=== PATIENT | female | born 1995 | race American Indian/Alaskan Native ===

== ENCOUNTER 2020-11-10 15:06 | Observation (INO) | payer SELFPAY ==
[2020-11-10] MEDS ORDERED: TETANUS,DIPH,PERTUSS(ACELL) VACCINE 0.5 ML SYRINGE IM ONE ×2 (15:18→18:41)
[2020-11-10] MEDS ORDERED: IBUPROFEN 600 MG TAB PO ONE (15:18)
--- NOTE | 2020-11-10 15:26 | Emergency Department Report ---
- General Chief complaint: Skin/Abscess/Foreign Body Stated complaint: SEWING NEEDLE BROKE OFF IN FLT FOOT Time Seen by Provider: 11/10/20 15:17 Source: patient Mode of arrival: Ambulatory Limitations: No Limitations - History of Present Illness Initial comments: Patient is a 25-year-old female presents emergency room with points of a possible foreign body to the left foot that occurred just prior to arrival. Patient states that she stepped on a sewing needle and that it broke in half and believes that the other pieces still left inside of her foot. She is ambulatory. She is unsure of her last tetanus immunization. She denies any numbness or weakness. No past medical history. No allergies to medications. - Related Data Allergies Allergy/AdvReac Type Severity Reaction Status Date / Time No Known Allergies Allergy Unverified 11/10/20 15:08 Abscess Boil HPI - HPI Chief Complaint: Skin/Abscess/Foreign Body Stated Complaint: SEWING NEEDLE BROKE OFF IN FLT FOOT Time Seen by Provider: 11/10/20 15:17 Allergies/Adverse Reactions: Allergies Allergy/AdvReac Type Severity Reaction Status Date / Time No Known Allergies Allergy Unverified 11/10/20 15:08 ED Review of Systems ROS: Stated complaint: SEWING NEEDLE BROKE OFF IN FLT FOOT Other details as noted in HPI Comment: All other systems reviewed and negative ED Past Medical Hx - Past Medical History Previous Medical History?: No - Surgical History Past Surgical History?: No - Social History Smoking Status: Never Smoker Substance Use Type: None ED Physical Exam - General Limitations: No Limitations General appearance: alert, in no apparent distress - Head Head exam: Present: atraumatic, normocephalic - Eye Eye exam: Present: normal appearance - ENT ENT exam: Present: mucous membranes moist - Neurological Exam Neurological exam: Present: alert, oriented X3 - Psychiatric Psychiatric exam: Present: normal affect, normal mood - Skin Skin exam: Present: warm, dry, other (there is a very small 2 mm puncture wound present to the left plantar foot, unable to visually see foreign body, FROM of the LLE, no bleeding, neurovascularly intact) ED Course Vital Signs 11/10/20 15:10 Temperature 98.2 F Pulse Rate 76 Respiratory 16 Rate Blood Pressure 132/76 O2 Sat by Pulse 100 Oximetry - Consultations Consultation #1: 11/10/20 17:[address] Jennings, general surgeon regarding patient presentation and results, she advised to keep patient n.p.o. at midnight and she will see patient in the morning 11/10/20 17:[address] Carey, hospitalist who will accept and resume care of patient, will admit to hospital service - Procedure Description Procedures done: Foreign body removal from left plantar foot. Verbal consent obtained by patient. Skin prepped with Betadine, sterile drapes applied, 3 cc of 1% lidocaine without epinephrine used anesthetic, 11 blade used to make a 1 cm incision, used forceps and hemostats to attempt to identify foreign body, unable to find foreign body. Dr. Novoa, ER attending also attempted to find foreign body and was unsuccessful ED Medical Decision Making - Radiology Data Radiology results: report reviewed Ordering Physician: ANTONELLA PASCUAL Date of Service: 11/10/20 Procedure(s): XR foot 3+V LT Accession Number(s): [id number] cc: ANTONELLA PASCUAL Fluoro Time In Minutes: LEFT FOOT 3 VIEWS INDICATION / CLINICAL INFORMATION: possible sewing needle in left plantar foot COMPARISON: None available. FINDINGS: BONES and JOINT(S): No acute fracture or subluxation. No significant arthritis. SOFT TISSUES: A needle is seen along the plantar aspect of the forefoot spanning the second MTP joint and measuring up to 2.9 cm. No other significant abnormality. ADDITIONAL FINDINGS: None. IMPRESSION: Needle in left foot as above without other acute findings. Signer Name: Avelino Carter MD Signed: 11/10/2020 3:47 PM Workstation Name: [id number] Transcribed By: SHARON Dictated By: Avelino Carter MD Electronically Authenticated By: Avelino Carter MD Signed Date/Time: 11/10/20 1547 DD/ 1546 TD/TT: - Medical Decision Making Patient is a 25-year-old female presents emergency room with points of a possible foreign body to the left foot that occurred just prior to arrival. Patient states that she stepped on a sewing needle and that it broke in half and believes that the other pieces still left inside of her foot. She is ambulatory. She is unsure of her last tetanus immunization. She denies any numbness or weakness. No past medical history. No allergies to medications. Vitals are stable. On exam:there is a very small 2 mm puncture wound present to the left plantar foot, unable to visually see foreign body, FROM of the LLE, no bleeding, neurovascularly intact. X-ray left foot:No acute fracture or subluxation. No significant arthritis. SOFT TISSUES: A needle is seen along the plantar aspect of the forefoot spanning the second MTP joint and measuring up to 2.9 cm. No other significant abnormality. Foreign body removal attempted by myself and Dr. Novoa, ER attending and was unsuccessful at removal.Spoke to Dr. Jennings, general surgeon regarding patient presentation and results, she advised to keep patient n.p.o. at midnight and she will see patient in the morning. Spoke to Dr. Carey, hospitalist who will accept and resume care of patient, will admit to hospital service. Patient agreeable with admission. Critical care attestation.: If time is entered above; I have spent that time in minutes in the direct care of this critically ill patient, excluding procedure time. ED Disposition Clinical Impression: Foreign body in left foot Qualifiers: Encounter type: initial encounter Qualified Code(s): S90.852A - Superficial foreign body, left foot, initial encounter Disposition: 02 [facility]ORT TERM [facility] Is pt being admited?: Yes Does the pt Need Aspirin: No Condition: Stable Time of Disposition: 17:42
[2020-11-10] MEDS ORDERED: LIDOCAINE (1%) 10 MG/1 ML VIAL 20 ML MDV INFILTRATI ONE (15:40)
--- NOTE | 2020-11-10 15:51 | XRay Report ---
LEFT FOOT 3 VIEWS INDICATION / CLINICAL INFORMATION: possible sewing needle in left plantar foot COMPARISON: None available. FINDINGS: BONES and JOINT(S): No acute fracture or subluxation. No significant arthritis. SOFT TISSUES: A needle is seen along the plantar aspect of the forefoot spanning the second MTP joint and measuring up to 2.9 cm. No other significant abnormality. ADDITIONAL FINDINGS: None. IMPRESSION: Needle in left foot as above without other acute findings. Signer Name: Avelino Carter MD Signed: 11/10/2020 3:47 PM Workstation Name: [id number]
--- NOTE | 2020-11-10 17:42 | History and Physical Report ---
History of Present Illness Chief complaint: I have a needle in My foot History of present illness: 25 YO Female with No PMH presents to ED for evaluation. Patient reports "I have a needle in my foot". Patient states that she stepped on a sewing needle today and that shortly after stepping on a needle the needle broke while in her foot. Patient transported to [facility] via private vehicle for further care and evaluation of the aforementioned symptoms. Patient was seen and evaluated in the emergency department. All lab and imaging studies reviewed. X-ray of the foot revealed foreign body in left foot. Surgical team consulted. Patient pending surgical intervention. Patient placed in observation status admitted to medical floor. Patient denies fever, chills, chest pain, palpitation, productive cough, skin rash, recent ill contacts, known exposure to COVID-19. No prior admission for review. No medication listed at time of admission for reconciliation. Past History Past Medical History: No medical history, other (Reviewed) Past Surgical History: No surgical history, Other (Reviewed) Social history: single. denies: smoking, alcohol abuse, prescription drug abuse Family history: hypertension Medications and Allergies Allergies Allergy/AdvReac Type Severity Reaction Status Date / Time No Known Allergies Allergy Unverified 11/10/20 15:08 Review of Systems Constitutional: no weight loss, no weight gain Ears, nose, mouth and throat: no ear pain, no ear discharge, no decreased h earing, no nasal congestion, no nasal discharge Breasts: no change in shape, no swelling Cardiovascular: no orthopnea, no palpitations, no edema, no syncope, no lightheadedness Respiratory: no cough, no cough with sputum, no hemoptysis, no dyspnea on exertion Gastrointestinal: no nausea, no diarrhea, no constipation, no hematemesis Genitourinary Female: no pelvic pain, no flank pain, no dysuria, no urinary frequency, no urgency Rectal: no pain, no incontinence, no bleeding Musculoskeletal: no neck stiffness, no neck pain, no leg numbness/tingling Integumentary: no rash, no pruritis, no sores Neurological: no transient paralysis, no parathesias, no numbness, no seizures Psychiatric: no anxiety, no change in sleep habits, no insomnia, no hypersomnia Endocrine: no cold intolerance, no polydipsia, no flushing Hematologic/Lymphatic: no easy bruising Allergic/Immunologic: no urticaria, no allergic rhinitis, no wheezing Exam - Constitutional Vitals: Temp Pulse Resp BP Pulse Ox 98.2 F 76 16 132/76 100 11/10/20 15:10 11/10/20 15:10 11/10/20 15:10 11/10/20 15:10 11/10/20 15:10 General appearance: Present: no acute distress, well-nourished - EENT Eyes: Present: PERRL ENT: hearing intact, clear oral mucosa - Neck Neck: Present: supple, normal ROM - Respiratory Respiratory effort: normal Respiratory: bilateral: CTA - Cardiovascular Heart Sounds: Present: S1 & S2. Absent: rub, click - Extremities Extremities: pulses symmetrical, No edema Peripheral Pulses: within normal limits - Abdominal General gastrointestinal: Present: soft, non-tender, non-distended, normal bowel sounds Female genitourinary: Present: normal - Integumentary Integumentary: Present: clear, warm, dry - Musculoskeletal Musculoskeletal: gait normal, strength equal bilaterally - Psychiatric Psychiatric: appropriate mood/affect, intact judgment & insight - Neurologic Neurologic: CNII-XII intact, moves all extremities Assessment and Plan - Patient Problems (1) Foreign body in left foot Current Visit: Yes Status: Acute Qualifiers: Encounter type: initial encounter Qualified Code(s): S90.852A - Superficial foreign body, left foot, initial encounter Plan to address problem: Surgical team consulted. Patient pending surgical intervention as per surgical team. Pain control, supportive care. (2) DVT prophylaxis Current Visit: Yes Status: Acute Plan to address problem: SCD bilateral extremities while in bed, patient is ambulatory.
[2020-11-10] MEDS ORDERED: HYDROmorphone 1 MG/1 ML INJ IV PRN (17:44)
[2020-11-10] MEDS ORDERED: oxyCODONE /ACETAMINOPHEN 5-325MG TAB PO PRN (17:44)
[2020-11-10] MEDS ORDERED: ACETAMINOPHEN 325 MG TAB PO PRN (17:44)
[2020-11-10] MEDS ORDERED: ONDANSETRON 4 MG/2 ML INJ IV PRN (17:44)
[2020-11-10] MEDS ORDERED: SODIUM CHLORIDE 0.9% 1000 ML 1,000 ML IV SCH (17:45)
[2020-11-11 05:01] LABS: Mean Corpuscular HGB Conc 27 % (30-34); Platelet Count 927 K/mm3 (140-440)
[2020-11-11 05:03] LABS: Hematocrit 22.8 % (30.3-42.9); Hemoglobin 6.1 gm/dl (10.1-14.3); Mean Corpuscular Volume 60 fl (79-97); Red Cell Distribution Width 34.5 % (13.2-15.2)
[2020-11-11 06:53] LABS: Total Cells Counted 100
[2020-11-11 06:58] LABS: Anisocytosis 3+; Hypochromasia 3+; Ovalocytes 1+; Poikilocytosis 2+; Spherocytes 1+; Target Cells 1+; Tear Drop Cells 1+
[2020-11-11 06:59] LABS: Platelet Estimate Consistent w Auto
[2020-11-11 07:28] LABS: INR 0.98 (0.87-1.13)
[2020-11-11 07:32] LABS: Hematocrit 24.6 % (30.3-42.9); Hemoglobin 6.5 gm/dl (10.1-14.3)
[2020-11-11 07:37] LABS: Blood Urea Nitrogen 12 mg/dL (7-17); Hemolysis Index 9
[2020-11-11 07:43] LABS: BUN/Creatinine Ratio 17
[2020-11-11] MEDS ORDERED: ePHEDrine SULFATE 50 MG/1 ML INJ ONE (09:00)
--- NOTE | 2020-11-11 09:16 | Consultation ---
History of Present Illness Consult date: 11/11/20 - History of present illness History of present illness: 25-year-old female presents the emergency room yesterday after stepping on a sewing needle same day. It had broken with approximately 2 cm or so in her foot under the skin. General surgery consultation was called after to emergency room providers were unable to remove it. Upon examination today patient says that her foot is very tender. She denies any other complaints regarding her foot. Patient had x-ray done of her left foot that showed a 2.3 cm needle into the skin and soft tissue under the surface. Of unrelated note patient says that she has been feeling faint and dizzy over the last few weeks to months and was scheduled to get blood work with her primary provider next week. Past History Past Medical History: No medical history, other (Reviewed) Past Surgical History: No surgical history, Other (Reviewed) Social history: single. denies: smoking, alcohol abuse, prescription drug abuse Family history: hypertension Medications and Allergies Allergies Allergy/AdvReac Type Severity Reaction Status Date / Time No Known Allergies Allergy Unverified 11/10/20 15:08 Active Meds: Active Medications Acetaminophen (Acetaminophen 325 Mg Tab) 650 mg PO Q4H PRN PRN Reason: Pain MILD(1-3)/Fever >100.5/YOUNG Hydromorphone HCl (Hydromorphone 1 Mg/1 Ml Inj) 0.5 mg IV Q12H PRN PRN Reason: Pain , Severe (7-10) Last Admin: 11/11/20 05:25 Dose: 0.5 mg Documented by: Sodium Chloride (Nacl 0.9% 1000 Ml) 1,000 mls @ 75 mls/hr IV DIRECT ALPHONSO Last Admin: 11/11/20 05:29 Dose: 75 mls/hr Documented by: Ondansetron HCl (Ondansetron 4 Mg/2 Ml Inj) 4 mg IV Q8H PRN PRN Reason: Nausea And Vomiting Oxycodone/Acetaminophen (Oxycodone /Acetaminophen 5-325mg Tab) 1 tab PO Q12H PRN PRN Reason: Pain, Moderate (4-6) Review of Systems All systems: negative - Constitutional fatigue, weakness - Genitourinary Menstruation: period heavy, other (Irregular periods) - Muskuloskeletal left: foot pain Exam Vital Signs Temp Pulse Resp BP Pulse Ox 98.2 F 76 16 132/76 100 11/10/20 15:10 11/10/20 15:10 11/10/20 15:10 11/10/20 15:10 11/10/20 15:10 - General physical appearance Positive: well developed, well nourished, no distress, moderate pain - ENT Positive: normal pinna, normal nares - Respiratory Positive: normal expansion, normal respiratory effort - Cardiovascular Heart Sounds: Present: S1 & S2 - Extremities Extremities: no ischemia Extremity abnormal: other (Left foot with no significant swelling. There is a small superficial 1 cm incision on the dorsal aspect of her foot between the first and second metatarsal head with dried blood. Sole of foot is tender to palpation. Needle cannot be palpated.) Results - Labs 11/11/20 07:09 11/11/20 07:09 Abnormal lab results 11/11/20 11/11/20 11/11/20 Range/Units 04:22 07:09 07:09 Hgb 6.1 L 6.5 L (10.1-14.3) gm/dl Hct 22.8 L 24.6 L (30.3-42.9) % MCV 60 L (79-97) fl MCH 16 L (28-32) pg MCHC 27 L (30-34) % RDW 34.5 H (13.2-15.2) % Plt Count 927 H (140-440) K/mm3 Lymphocytes % (Manual) 7.0 L (13.4-35.0) % Lymphocytes # (Manual) 0.6 L (1.2-5.4) K/mm3 Potassium 3.5 L (3.6-5.0) mmol/L Chloride 110.7 H (98-107) mmol/L Calcium 8.0 L (8.4-10.2) mg/dL Diabetes panel 11/11/20 Range/Units 07:09 Sodium 140 (137-145) mmol/L Potassium 3.5 L (3.6-5.0) mmol/L Chloride 110.7 H (98-107) mmol/L Carbon Dioxide 22 (22-30) mmol/L BUN 12 (7-17) mg/dL Creatinine 0.7 (0.6-1.2) mg/dL Glucose 97 (65-100) mg/dL Calcium 8.0 L (8.4-10.2) mg/dL Calcium panel 11/11/20 Range/Units 07:09 Calcium 8.0 L (8.4-10.2) mg/dL Pituitary panel 11/11/20 Range/Units 07:09 Sodium 140 (137-145) mmol/L Potassium 3.5 L (3.6-5.0) mmol/L Chloride 110.7 H (98-107) mmol/L Carbon Dioxide 22 (22-30) mmol/L BUN 12 (7-17) mg/dL Creatinine 0.7 (0.6-1.2) mg/dL Glucose 97 (65-100) mg/dL Calcium 8.0 L (8.4-10.2) mg/dL Adrenal panel 11/11/20 Range/Units 07:09 Sodium 140 (137-145) mmol/L Potassium 3.5 L (3.6-5.0) mmol/L Chloride 110.7 H (98-107) mmol/L Carbon Dioxide 22 (22-30) mmol/L BUN 12 (7-17) mg/dL Creatinine 0.7 (0.6-1.2) mg/dL Glucose 97 (65-100) mg/dL Calcium 8.0 L (8.4-10.2) mg/dL - Imaging Additional studies: left foot x-ray - reviewed Assessment and Plan 25-year-old female with foreign body in left foot. Afebrile and stable. Patient consented to take 2 OR for removal of foreign body (needle). Anemia - Hb 6.5 likely chronic of unknown etiology at this time. Recommend patient get work-up to evaluate and treat.
--- NOTE | 2020-11-11 09:21 | Anesthesia Consultation ---
Anesthesia Consult and Med Hx Date of service: 11/11/20 - Airway Anesthetic Teeth Evaluation: Good ROM Head & Neck: Adequate Mental/Hyoid Distance: Adequate Mallampati Class: Class II Intubation Access Assessment: Probably Good - Pre-Operative Health Status ASA Pre-Surgery Classification: ASA1 Proposed Anesthetic Plan: MAC - Pulmonary Hx Smoking: No Hx Asthma: No Hx Respiratory Symptoms: No SOB: No COPD: No Home Oxygen Therapy: No Hx Pneumonia: No Hx Sleep Apnea: Yes - Cardiovascular System Hx Hypertension: No Hx Coronary Artery Disease: No Hx Heart Attack/AMI: No Hx Angina: No Hx Percutaneous Transluminal Coronary Angioplasty (PTCA): No Hx Cardia Arrhythmia: No Hx Pacemaker: No Hx Internal Defibrillator: No Hx Valvular Heart Disease: No Hx Heart Murmur: No Hx Peripheral Vascular Disease: No - Central Nervous System Hx Neuromuscular Disorder: No Hx Seizures: No CVA: No Hx Back Pain: No Hx Psychiatric Problems: No - Gastrointestinal Hx Ulcer: No Hx Gastroesophageal Reflux Disease: No - Endocrine Hx Renal Disease: No Hx End Stage Renal Disease: No Hx Cirrhosis: No Hx Liver Disease: No Hx Insulin Dependent Diabetes: No Hx Non-Insulin Dependent Diabetes: No Hx Thyroid Disease: No Hx Hypothyroidism: No Hx Hyperthyroidism: No - Hematic Hx Anemia: Yes Hx Sickle Cell Disease: No - Other Systems Hx Alcohol Use: Yes (occ.) Hx Substance Use: No Hx Cancer: No Hx Obesity: No
--- NOTE | 2020-11-11 09:22 | Anesthesia Day of Surgery ---
Anesthesia Day of Surgery - Day of Surgery Patient Examined: Yes Patient H&P Reviewed: Yes Patient is NPO: Yes
[2020-11-11 09:48] LABS: HCG Qualitative,Urine Negative (Negative)
[2020-11-11] MEDS ORDERED: LIDOCAINE 2%/EPINEPHRINE 1:200,000 VIAL (20 ML) INFILTRATI ONE (09:56)
[2020-11-11] MEDS ORDERED: BUPIVACAINE/PF (0.25%) 2.5 MG/ML 30 ML VIAL INFILTRATI ONE ×2 (09:56→10:54)
[2020-11-11] MEDS ORDERED: LIDOCAINE MPF (2%) 20 MG/1 ML VIAL 5 ML ONE (10:29)
[2020-11-11] MEDS ORDERED: propofoL 200 MG/20 ML VIAL IV ONE ×2 (10:29→10:52)
[2020-11-11] MEDS ORDERED: fentaNYL 100 MCG/2 ML INJ ONE (10:29)
[2020-11-11] MEDS ORDERED: MIDAZOLAM 2 MG/2 ML INJ ONE (10:29)
[2020-11-11] MEDS ORDERED: ceFAZolin 1 GM VIAL ONE ×2 (10:41)
[2020-11-11] MEDS ORDERED: SODIUM CHLORIDE 0.9% IRR 1,500 ML BOTTLE IR ONE (10:54)
[2020-11-11] MEDS ORDERED: LIDOCAINE 2%/EPINEPHRINE 1:100,000 VIAL (20 ML) INFILTRATI ONE (10:54)
--- NOTE | 2020-11-11 11:39 | Operative Report ---
Operative Report Operative Report: Date: November 11, 2020 Surgeon: Sita Jennings MD Preop diagnosis: Foreign body left foot Postop diagnosis: Same as preop Procedure: Removal of foreign body left foot Anesthesia: MAC with local Indication: Patient is a 25-year-old female who presented to the emergency room yesterday after stepping on a sewing needle. Needle was unable to be retrieved in the emergency room patient was consented for removal of foreign body from her left foot in the operating room. Details of procedure: Patient was brought into the OR suite and laid in supine position. MAC anesthesia was induced. Left foot was elevated and prepped and draped in sterile fashion. After a timeout was performed 50-50 lidocaine Marcaine mixture was used to anesthetize the area under the second metatarsal head of her foot. Fluoroscopy was available in the room and showed a precut image showing the location of the needle. The scalpel was used to cut down to the area. Dissection down with a hemostat was used to localize the surface cut end of the needle. It was then removed with forceps. Intact. A post removal fluoroscopy image was taken which showed verification of complete removal of the foreign body. There was minimal bleeding, however any bleeding was easily controlled with electrocautery. Interrupted 2-0 nylon sutures were used to approximate the 2 cm skin incision. Patient was then dressed in a sterile dressing will get up and taken to recovery in stable condition. Complications: None immediate Specimen: Foreign body EBL: Minimal
--- NOTE | 2020-11-11 11:53 | Post Anesthesia Evaluation ---
- Post Anesthesia Evaluation Patient Participated: Yes Airway Patent: Yes Stable Respiratory Function: Yes Nausea/Vomiting: No Temp > 96.8F: Yes Pain Manageable: Yes Adequeate Hydration: Yes Anesthesia Complications: No Block Receding Appropriately: Not Applicable Patient on Ventilator: No Other Comments: pt a+o x3. no distress noted. denies pain. resting comfortable in bed. awaiting transfer.
[2020-11-11] MEDS ORDERED: HYDROmorphone 1 MG/1 ML INJ IV PRN (11:54)
[2020-11-11] MEDS ORDERED: ONDANSETRON 4 MG/2 ML INJ IV PRN (11:54)
[2020-11-11] MEDS ORDERED: SODIUM CHLORIDE 0.9% 500 ML 500 ML IV ONE (12:00)
--- NOTE | 2020-11-11 12:08 | XRay Report ---
INTRAOPERATIVE FLUOROSCOPY: LEFT FOOT INDICATION / CLINICAL INFORMATION: SURGICAL REMOVAL OF FOREIGN BODY OF LT FOOT. TECHNIQUE: Intraoperative spot images were obtained during the procedure. FINDINGS: Fluoroscopic images of the left foot were obtained. Radiopaque needle has been removed. Fluoroscopy Time: 0.2 minute. Fluoroscopy Images: 2. Signer Name: Duke Wang MD Signed: 11/11/2020 12:03 PM Workstation Name: [id number]
--- NOTE | 2020-11-11 12:28 | Progress Note ---
Assessment and Plan (1) Foreign body in left foot Current Visit: Yes Status: Acute Qualifiers: Encounter type: initial encounter Qualified Code(s): S90.852A - Superficial foreign body, left foot, initial encounter Plan to address problem: Surgical team consulted. Patient s/p surgical intervention as per surgical team. Pain control, supportive care. --Microcytic anemia, ordered for transfusion (2) DVT prophylaxis Current Visit: Yes Status: Acute Plan to address problem: SCD bilateral extremities while in bed, patient is ambulatory. Disposition: Status post removal of foreign body today in the OR. Hemoglobin 6.8, will transfuse 1 unit of packed RBC. Patient currently in postop area. Will follow H&H. If H&H is stable patient will be discharged home tomorrow in the morning. Subjective Date of service: 11/11/20 Objective - Constitutional Vitals: Vital Signs - 12hr 11/11/20 11/11/20 11/11/20 05:00 05:15 05:31 Temperature Pulse Rate 75 63 70 Respiratory 15 16 14 Rate Blood Pressure 97/51 107/63 O2 Sat by Pulse 100 100 Oximetry 11/11/20 11/11/20 11/11/20 05:45 06:01 06:15 Temperature Pulse Rate 70 65 63 Respiratory 18 19 15 Rate Blood Pressure 109/63 115/66 103/59 O2 Sat by Pulse 100 100 100 Oximetry 11/11/20 11/11/20 11/11/20 06:31 06:45 07:01 Temperature Pulse Rate 69 85 69 Respiratory 18 16 11 L Rate Blood Pressure 109/61 107/62 120/69 O2 Sat by Pulse 100 100 100 Oximetry 11/11/20 11/11/20 11/11/20 07:15 07:31 07:45 Temperature Pulse Rate 67 70 77 Respiratory 23 19 19 Rate Blood Pressure 111/62 123/66 119/60 O2 Sat by Pulse 100 100 100 Oximetry 11/11/20 11/11/20 11/11/20 08:01 08:15 08:31 Temperature Pulse Rate 62 58 L 62 Respiratory 20 18 20 Rate Blood Pressure 114/67 117/65 115/66 O2 Sat by Pulse 100 100 100 Oximetry 11/11/20 11/11/20 11/11/20 08:45 09:04 11:23 Temperature 97.9 F 97.1 F L Pulse Rate 73 88 Respiratory 12 14 Rate Blood Pressure 133/89 124/65 O2 Sat by Pulse 100 100 Oximetry 11/11/20 11:28 Temperature Pulse Rate 89 Respiratory 15 Rate Blood Pressure 115/67 O2 Sat by Pulse 100 Oximetry - Labs CBC & Chem 7: 11/11/20 07:09 11/11/20 07:09 Labs: Abnormal lab results 11/11/20 11/11/20 11/11/20 Range/Units 04:22 07:09 07:09 Hgb 6.1 L 6.5 L (10.1-14.3) gm/dl Hct 22.8 L 24.6 L (30.3-42.9) % MCV 60 L (79-97) fl MCH 16 L (28-32) pg MCHC 27 L (30-34) % RDW 34.5 H (13.2-15.2) % Plt Count 927 H (140-440) K/mm3 Lymphocytes % (Manual) 7.0 L (13.4-35.0) % Lymphocytes # (Manual) 0.6 L (1.2-5.4) K/mm3 Potassium 3.5 L (3.6-5.0) mmol/L Chloride 110.7 H (98-107) mmol/L Calcium 8.0 L (8.4-10.2) mg/dL
[2020-11-11] MEDS ORDERED: oxyCODONE /ACETAMINOPHEN 5-325MG TAB PO PRN (12:39)
[2020-11-11 12:44] LABS: Iron 7 ug/dL (37-170); Total Iron Binding Capacity 337 mcg/dL (250-450)
[2020-11-11] MEDS: KETOROLAC 30 MG/1 ML INJ IV SCH ×3 (14:28→23:33)
[2020-11-12] MEDS: KETOROLAC 30 MG/1 ML INJ IV SCH ×2 (05:21→12:43)
--- NOTE | 2020-11-12 10:02 | Discharge Summary ---
Providers - Providers Date of Admission: 11/10/20 17:44 Date of discharge: 11/12/20 Attending physician: INDIO RUANO 11/10/20 17:39 Consult to Physician [CONS] Stat Comment: Consulting Provider: ANTONINO GRIFFITH Physician Instructions: Reason For Exam: foreign body in foot Primary care physician: [employer]ST[employer] MANAGER Hospitalization Condition: Stable Disposition: 01 HOME / SELF CARE / HOMELESS Time spent for discharge: 34 minutes Core Measure Documentation - Palliative Care Palliative Care/ Comfort Measures: Not Applicable - Core Measures Any of the following diagnoses?: none Exam - Physical Exam Narrative exam: GENERAL: well-developed and well-nourished AAF lying on bed appeared to be in no discomfort. HEENT: Normocephalic. Atraumatic. No conjunctival congestion or icterus. Patient has moist mucous membranes. NECK: Supple. Trachea midline. CHEST/LUNGS: Clear to auscultated bilaterally, breathing nonlabored. No wheezes crackles or rhonchi. HEART/CARDIOVASCULAR: Regular in rate and rhythm. S1 and S2 positive. ABDOMEN: Abdomen is soft, nontender. Patient has normal bowel sounds. SKIN: There is no rash. Warm and dry. NEURO: No focal motor deficit. Follows command. MUSCULOSKELETAL: No joint effusion or tenderness. Left foot with foam dressing EXTRIMITY: No edema, no cyanosis or clubbing. PSYCH: Cooperative. - Constitutional Vitals: Temp Pulse Resp BP Pulse Ox 98.0 F 65 16 104/46 100 11/12/20 08:04 11/12/20 08:04 11/12/20 08:04 11/12/20 08:04 11/12/20 08:04 Plan Activity: advance as tolerated Diet: regular Wound: per your surgeon's advice Additional Instructions: Further workup for anemia as outpt with PCP. f/u wound care clinic in one week Follow up with: PRIMARY CAREMD [Primary Care Provider] - 3-5 Days
[2020-11-12] MEDS ORDERED: POTASSIUM CHLORIDE ER 20 MEQ TAB PO NR (10:08)
[2020-11-12 10:11] LABS: Hematocrit 24.7 % (30.3-42.9); Hemoglobin 7.1 gm/dl (10.1-14.3)
[2020-11-12 11:49] VITALS: BP 110/86
--- NOTE | 2020-11-12 14:57 | Progress Note ---
Assessment and Plan 25-year-old female postop day #1 status post removal of foreign body from her left foot. Afebrile and stable. From general surgery perspective patient can be discharged and follow with me in the office in 2 weeks for suture removal. Patient should follow-up with the appropriate referrals for outpatient work-up of her anemia. Subjective Date of service: 11/12/20 Narrative: No acute events overnight. Patient received 1 unit of blood and feels well today. Patient denies any foot pain. Objective Vital Signs - 12hr 11/12/20 11/12/20 11/12/20 03:51 08:03 08:04 Temperature 98.0 F 98.0 F Pulse Rate 76 65 Respiratory 12 16 Rate Blood Pressure 124/69 104/46 Blood Pressure [Left] O2 Sat by Pulse 100 100 100 Oximetry 11/12/20 11:48 Temperature 98.4 F Pulse Rate 68 Respiratory 16 Rate Blood Pressure Blood Pressure 110/86 [Left] O2 Sat by Pulse 96 Oximetry - Musculoskeletal other (Left foot with bandage in place. No signs of bleeding. Nontender to palpation.) - Labs 11/12/20 09:08 11/11/20 07:09
== END 2020-11-12 16:45 | disposition home or self-care (01) ==
LOC: ED 15:06 → 3A 17:44 → 4A 11-11 06:39
PROVIDERS: ADMIT Internal Medicine; ATTEND Internal Medicine
DX: S90.852A Superficial foreign body, left foot, initial encounter (principal); D64.9 Anemia, unspecified; W45.0XXA Nail entering through skin, initial encounter; Y93.89 Activity, other specified; Y92.89 Other specified places as the place of occurrence of the external cause; Y99.8 Other external cause status
CPT/HCPCS: 28192; 36415; 36430; 73620; 73630; 80048; 81025; 82728; 83550; 85014; 85018; 85025; 85610; 86850; 86900; 86901; 86920; 88300; 90471; 90715; 96361; 96374; 96375; 96376; 99284; G0378; J0690; J1170; J1885; J2250; J2704; J3010; J7030; J7040; P9016; 85007; 88302

== ENCOUNTER 2021-05-01 10:04 | Emergency (ER) | payer BC, OTHER | END 2021-05-01 22:13 | disposition left against medical advice (07) | LOC: ED 10:04 | DX: R11.10 Vomiting, unspecified (principal); Z53.21 Procedure and treatment not carried out due to patient leaving prior to being seen by health care provider ==